=== PATIENT | female | born 1970 | race Caucasian/White ===

== ENCOUNTER 2023-02-14 21:06 | Emergency (ER) | payer BC, SELFPAY ==
[2023-02-14 21:11] VITALS: BP 130/79; PULSE 78; RESP 20; TEMP 36.1; O2SAT 100
--- NOTE | 2023-02-14 21:15 | DI.RAD_ITS ---
Exam(s) XR FOOT RT COMPLETE EXAM: XR FOOT RT COMPLETE CLINICAL HISTORY: Injury, Dorsal foot pain. TECHNIQUE: 2D digital imaging was performed of the right foot. Three images were obtained. AP, obl ique and lateral views were obtained. COMPARISON: No exams were available for comparison FINDINGS: BONES: On the oblique view, there is a triangular fragment the medial aspect of the base of the 1st m etatarsal suspicious for a nondisplaced fracture. Also on the oblique view, there is a lucency seen through the base of the 4th metatarsal not appreciated on the other views. This may represent a nond isplaced fracture. No bony destructive lesion is seen. JOINTS: No dislocation present. SOFT TISSUE: Mild soft tissue swelling of the forefoot. IMPRESSION: 1. Findings suspicious for fracture through the medial aspect of the base of the 1st metatarsal. 2. Question of a nondisplaced fracture involving the base of the 4th metatarsal seen on the oblique v iew. 3. Please correlate with patient's site of pain. If there is continued clinical concern, a CT scan m ay be obtained for further evaluation. DATA REPOSITORY: RADIATION DOSE DELIVERED:
--- NOTE | 2023-02-14 21:23 | ED.GENADUL_ITS ---
Discharge Plan Disposition Patient Disposition: Home Condition: Stable Discharge Details Clinical Impression: Fracture of right foot ED Provider: Odalis Sy Home Meds and New Rx's Prescriptions: New oxycodone-acetaminophen [Endocet] 5-325 mg tablet 1 tab PO Q8H PRN (Reason: pain) Qty: 7 0RF Rx Instructions: Take one tablet with food every 8 hours as needed for moderate to severe pain. No Action Estro Vital Nutrients 30-0.4 unit-mg Tablet See Rx Instructions .ROUTE .COMPLEX Rx Instructions: otc Discharge Instructions Instructions: Foot Fracture in Adults (ED) Additional Instructions: It appears you have broken the first metatarsal and possibly the fourth metatarsal of your right foot. Non weight bearing until follow up with Orthopedics or podiatry. Use the crutches and ortho walking boot as directed, Rest, Ice, Compression and elevation while sitting or lying down. Please take Tylenol or Ibuprofen with food every 4-6 hours as needed for pain and swelling. Stand Alone Forms: Work Release Medical Decision Making 52-year-old female presents to the ER with chief complaint of right foot injury which occurred approximately 2 hours prior to arrival while hiking. Patient states that she slipped fell forward and is now unable to put any weight onto her right foot. She notes some medial dorsal swelling of her midfoot. Denies any ankle pain knee pain elbow pain or any other associated symptoms or concerns. She did take 600 mg ibuprofen prior to arrival and iced it. CMS intact. X-ray right foot ordered. Results are noted below. Patient given a walking boot crutches a disc and the radiology read to [place] in [place]. Discussed home care and nonweightbearing status she verbalized understanding. Patient was given a Percocet here and 1 tablet to go and a prescription for 7 tablets. Discussed RICE procedures. Discharged in hemodynamically stable condition. This text was generated using [employer]BLE dictation system, please disregard any oddities of phrase or m isspellings. Imaging Data Radiologic Study: Imaging: X-Ray Radiologist's impression: Imaging protocol: Radiologic exam of the right foot. Views: 3 or more views. COMPARISON: No relevant prior studies available. FINDINGS: Bones/joints: There is small 3-4 mm ossific fragment along the medial aspect of the base of the 1st metatarsal on oblique view concerning for small corner fracture. There is also indeterminate linear lucency within the base of the 4th metatarsal on oblique view, cannot exclude nondisplaced fracture. No joint dislocation. Soft tissues: Mild forefoot soft tissue edema. IMPRESSION: 1. Small 3-4 mm ossific fragment along the medial aspect of the base of the 1st metatarsal seen on oblique view concerning for possible small corner fracture. Correlate for point tenderness. 2. Indeterminate linear lucency within the base of the 4th metatarsal on oblique view not discretely correlated on other views, cannot exclude nondisplaced fracture. May consider correlation with CT for more definitive characterization. Thank you for allowing us to participate in the care of your patient. Dictated and Authenticated by: Joaquin Benavides MD HPI General Mode of arrival: wheelchair . Date/Time Provider Initiated Documentation: 02/14/23 21:17 . Limitations to Documentation: no limitations . Information obtained by: patient and RN notes reviewed . HPI Narrative: 52-year-old female presents to the ER with chief complaint of right foot injury which occurred approximately 2 hours prior to arrival while hiking. Patient states that she slipped fell forward and is now unable to put any weight onto her right foot. She notes some medial dorsal swelling of her midfoot. Denies any ankle pain knee pain elbow pain or any other associated symptoms or concerns. She did take 600 mg ibuprofen prior to arrival and iced it. CMS intact. Related Data Home Medications Medication Instructions Recorded Confirmed oxycodone-acetaminophen 5 mg-325 1 tab PO Q8H PRN pain #7 tabs 02/14/23 mg tablet (Endocet) vit B comp-vit E-FA-hb 105 30 See Rx Instructions .Route .COMPLEX 02/14/23 02/14/23 unit-0.4 mg tablet Previous Rx's Medication Instructions Recorded oxycodone-acetaminophen 5 mg-325 1 tab PO Q8H PRN pain #7 tabs 02/14/23 mg tablet (Endocet) Allergies Allergy/AdvReac Type Severity Reaction Status Date / Time No Known Allergies Allergy Unverified 02/14/23 21:27 General Stated Complaint: Orthopedic FILIBERTO: 3 Review of Systems Musculoskeletal Musculoskeletal: Reports as per HPI and Reports arthralgias PFSH All Active Problems (Updated 02/14/23 @ 22:12 by Odalis Sy NP) Fracture of right foot (Acute) Social History Smoking/Tobacco Use Status: Never Smoking risk assessment performed?: Yes Drug use: Never Substance use type: does not use Do you feel safe at home: Yes Do you feel safe in your relationship?: Yes Exam Extrem Right lower extremity: ankle Details: normal to inspection; no tenderness and no swelling and foot Details: normal capillary refill and tenderness Location: of the dorsal foot and of the medial foot Course Vital Signs Vital signs: Vital Signs Temperature 36.1 C L 02/14/23 21:11 Pulse 78 02/14/23 21:11 Respiratory Rate 20 02/14/23 21:11 Blood Pressure 130/79 02/14/23 21:11 Pulse Oximetry 100 02/14/23 21:11 Temperature 36.1 C L 02/14/23 21:11 Temperature Source Temporal Artery Scan 02/14/23 21:11 Pulse 78 02/14/23 21:11 Respiratory Rate 20 02/14/23 21:11 Blood Pressure 130/79 02/14/23 21:11 Blood Pressure Position Sitting 02/14/23 21:11 Pulse Oximetry 100 02/14/23 21:11 Oxygen Delivery Method Room Air 02/14/23 21:11 Oxygen Flow Rate 0 02/14/23 21:11 Pain Level 10 02/14/23 21:11
[2023-02-14] MEDS: oxyCODONE 5 mg/Acetaminophen 325 mg TAB 1 TAB PO ×2 (21:35→22:27)
--- NOTE | 2023-02-14 22:03 | DI.VRAD_ITS ---
PROCEDURE INFORMATION: Exam: XR Right Foot Exam date and time: 02/14/2023 9:48 PM Age: 52 years old Clinical indication: Other: Injury foot pain TECHNIQUE: Imaging protocol: Radiologic exam of the right foot. Views: 3 or more views. COMPARISON: No relevant prior studies available. FINDINGS: Bones/joints: There is small 3-4 mm ossific fragment along the medial aspect of the base of the 1st metatarsal on oblique view concerning for small corner fracture. There is also indeterminate linear lucency within the base of the 4th metatarsal on oblique view, cannot exclude nondisplaced fracture. No joint dislocation. Soft tissues: Mild forefoot soft tissue edema. IMPRESSION: 1. Small 3-4 mm ossific fragment along the medial aspect of the base of the 1st metatarsal seen on oblique view concerning for possible small corner fracture. Correlate for point tenderness. 2. Indeterminate linear lucency within the base of the 4th metatarsal on oblique view not discretely correlated on other views, cannot exclude nondisplaced fracture. May consider correlation with CT for more definitive characterization. Dictated and Authenticated by: Joaquin Benavides MD. Ordering:SHAWN Jacobo MD
== END 2023-02-14 22:32 | disposition home or self-care (01) ==
PROVIDERS: Emergency Provider Registered Nurse Emergency
DX: S92.301A Fracture of unspecified metatarsal bone(s), right foot, initial encounter for closed fracture (principal); W01.0XXA Fall on same level from slipping, tripping and stumbling without subsequent striking against object, initial encounter
CPT/HCPCS: 29515; 99283; 73630